=== PATIENT | female | born 1990 | race Caucasian/White ===

== ENCOUNTER 2021-04-10 15:15 | Emergency (ER) | payer BC ==
[~2021-04-10] VITALS: Ht 170.2 cm; Wt 131.5 kg
[2021-04-10 15:32] VITALS: BP 150/95; Ht 170.2 cm; Wt 131.5 kg
[2021-04-10] MEDS ORDERED: CYCLOBENZAPRINE10 MG PO (17:12)
== END 2021-04-10 17:48 | disposition home or self-care (01) ==
LOC: D.ER 15:15
DX: S39.012A Strain of muscle, fascia and tendon of lower back, initial encounter (principal); M54.30 Sciatica, unspecified side; J44.9 Chronic obstructive pulmonary disease, unspecified; Z72.0 Tobacco use; X50.0XXA Overexertion from strenuous movement or load, initial encounter; Y93.9 Activity, unspecified; Y92.9 Unspecified place or not applicable